=== PATIENT | female | born 1950 | race African-American/Black ===

== ENCOUNTER 2019-12-18 17:44 | Inpatient (IN) ==
[2019-12-18] MEDS ORDERED: ONDANSETRON 4 MG/2 ML VIAL IV STA (18:28)
[2019-12-18] MEDS ORDERED: LABETALOL 20 MG/4 ML SYRINGE IV STA (18:28)
[2019-12-18] MEDS ORDERED: ASPIRIN 325 MG TABLET PO STA (18:28)
[2019-12-18 18:41] LABS: Basophils # 0.1 10*3/uL (0.0-0.2); Basophils % 0.9 % (0.0-0.8); Eosinophils # 0.3 10*3/uL (0.0-0.87); Eosinophils % 4.8 % (0.00-10.9); Hematocrit 39.7 VOL% (35.7-47.0); Hemoglobin 12.6 GM/DL (12.0-16.0); Immature Granulocytes % 0.3 %; Immature Granulocytes Absolute 0.02 #; Lymphocytes # 2.1 10*3/uL (1.4-4.0); Lymphocytes % 29.8 % (21.3-54.2); Mean Corpuscular HGB Conc 31.7 GM/DL (32-36); Mean Corpuscular Volume 82.5 FL (87-102); Mean Platelet Volume 10.6 FL (9.6-12.0); Monocytes % 10.3 % (1.7-12.7); Neutrophils % 53.9 % (38.7-73.9); Platelet Count 257 T/CUMM (130-400); Red Blood Count 4.81 MC/CUMM (3.8-5.5); Red Cell Distribution Width 13.4 % (9.3-17.3); White Blood Count 6.9 T/CUMM (4-12)
[2019-12-18 18:51] LABS: PT Patient Result 10.4 SECS (9.8-11.9); Partial Thromboplastin Time 28.4 SECS (23.9-33.8)
[2019-12-18 19:03] LABS: Alanine Aminotransferase 28 U/L (13-56); Albumin 3.4 G/DL (3.4-5.0); Alkaline Phosphatase 140 U/L (45-117); Aspartate Amino Transferase 11 U/L (0-37); Blood Urea Nitrogen 20 MG/DL (7-18); Calcium 9.2 MG/DL (8.5-10.1); Estimated Glom Filtration Rate 35 ML/MIN; Glucose 362 MG/DL (74-106); Osmolality,Calculated 290.8 MOS/KG (273-304); Total Protein 6.7 G/DL (6.4-8.3)
[2019-12-18] MEDS ORDERED: INSULIN REGULAR 100 UNIT/ML SUBCUT STA (19:09)
[2019-12-18 19:41] LABS: Apearance,Urine CLEAR (Clear); Bacteria,Urine Occasional /HPF (Few); Bilirubin,Urine Negative (Negative); Blood, Urine Negative (Negative); Glucose,Urine (UA) >=500 mg/dL (Negative); Ketones,Urine Negative (Negative); Mucus,Urine Occasional /LPF (Occasional); Nitrite,Urine Negative (Negative); Protein,Urine Negative; RBC,Urine 1 /HPF (0-4); Squamous Epithelial Cell,Urine Occasional /HPF (0-10); Urine Color Yellow (Yellow); Urine Specific Gravity 1.021 (1.001-1.035); WBC,Urine 2 /HPF (0-6)
[2019-12-18 20:02] LABS: Barbiturates Screen,Urine Negative (Negative); Benzodiazepines Screen,Urine Negative (Negative); Cannabinoid Screen,Urine Negative (Negative); Opiate Screen,Urine Negative (Negative); Phencyclidine Screen,Urine Negative (Negative)
[2019-12-18] MEDS ORDERED: GLUCAGON 1 MG VIAL IM PRN (20:09)
[2019-12-18] MEDS ORDERED: ACETAMINOPHEN 325 MG TABLET PO PRN (20:09)
[2019-12-18] MEDS ORDERED: DEXTROSE 10% 250 ML BAG IV PRN (20:09)
[2019-12-18] MEDS ORDERED: ONDANSETRON 4 MG/2 ML VIAL IV PRN (20:09)
[2019-12-18] MEDS ORDERED: MORPHINE 4 MG/1 ML VIAL IV PRN (20:09)
[2019-12-18] MEDS: SODIUM CHLORIDE 0.9% 1,000 ML IV SCH (20:30)
[2019-12-19 05:37] LABS: Basophils # 0.1 10*3/uL (0.0-0.2); Basophils % 1.1 % (0.0-0.8); Eosinophils # 0.2 10*3/uL (0.0-0.87); Eosinophils % 4.1 % (0.00-10.9); Hematocrit 38.7 VOL% (35.7-47.0); Hemoglobin 11.9 GM/DL (12.0-16.0); Immature Granulocytes % 0.4 %; Immature Granulocytes Absolute 0.02 #; Lymphocytes # 2.2 10*3/uL (1.4-4.0); Lymphocytes % 38.3 % (21.3-54.2); Mean Corpuscular HGB Conc 30.7 GM/DL (32-36); Mean Corpuscular Volume 84.5 FL (87-102); Mean Platelet Volume 11.1 FL (9.6-12.0); Monocytes % 8.7 % (1.7-12.7); Neutrophils % 47.4 % (38.7-73.9); Red Blood Count 4.58 MC/CUMM (3.8-5.5); Red Cell Distribution Width 13.4 % (9.3-17.3); White Blood Count 5.6 T/CUMM (4-12)
[2019-12-19 05:40] LABS: Platelet Count 91 T/CUMM (130-400)
[2019-12-19 05:51] LABS: Albumin 3.1 G/DL (3.4-5.0); Bilirubin,Total 0.5 MG/DL (0.2-1.0); Calcium 9.1 MG/DL (8.5-10.1); Osmolality,Calculated 284.5 MOS/KG (273-304); Risk Ratio 2.42; Total Protein 6.3 G/DL (6.4-8.3)
[2019-12-19 05:57] LABS: Hypochromasia 1+
[2019-12-19 05:58] LABS: Microcytosis 1+
[2019-12-19] MEDS ORDERED: ENOXAPARIN 40 MG/0.4 ML SYRINGE ONE (06:57)
[2019-12-19] MEDS: ENOXAPARIN 40 MG/0.4 ML SYRINGE SUBCUT SCH ×2 (07:10→20:49)
[2019-12-19] MEDS: INSULIN REGULAR 100 UNIT/ML SUBCUT SCH ×4 (07:17→17:29)
[2019-12-19] MEDS: DOCUSATE SODIUM 100 MG CAPSULE PO SCH ×3 (09:11→20:49)
[2019-12-19] MEDS: PANTOPRAZOLE 40 MG TABLET PO SCH (09:11)
[2019-12-19] MEDS: SODIUM CHLORIDE 0.9% 1,000 ML IV SCH ×2 (09:33→20:49)
[2019-12-19] MEDS: ASPIRIN EC 81 MG TABLET PO SCH (14:24)
[2019-12-19] MEDS: METOPROLOL TARTRATE 50 MG TABLET PO SCH (17:30)
[2019-12-20] MEDS: INSULIN REGULAR 100 UNIT/ML SUBCUT SCH ×4 (01:00→18:35)
[2019-12-20 05:04] LABS: Calcium 8.7 MG/DL (8.5-10.1); Osmolality,Calculated 286.4 MOS/KG (273-304)
[2019-12-20] MEDS: ROSUVASTATIN 10 MG TABLET PO SCH (09:06)
[2019-12-20] MEDS: sitaGLIPtin 25 MG TABLET PO SCH (09:06)
[2019-12-20] MEDS: MEMANTINE 10 MG TABLET PO SCH (09:07)
[2019-12-20] MEDS: DOCUSATE SODIUM 100 MG CAPSULE PO SCH ×2 (09:07→21:18)
[2019-12-20] MEDS: ASPIRIN EC 81 MG TABLET PO SCH (09:08)
[2019-12-20] MEDS: PANTOPRAZOLE 40 MG TABLET PO SCH (09:08)
[2019-12-20] MEDS: INSULIN GLARGINE 100 UNIT/ML SUBCUT SCH (09:08)
[2019-12-20] MEDS: METOPROLOL TARTRATE 50 MG TABLET PO SCH ×2 (09:08→16:55)
[2019-12-20] MEDS: LORATADINE 10 MG TABLET PO SCH (09:08)
[2019-12-20] MEDS: SODIUM CHLORIDE 0.9% 1,000 ML IV SCH ×2 (09:10→13:35)
[2019-12-20] MEDS: ENOXAPARIN 40 MG/0.4 ML SYRINGE SUBCUT SCH (21:18)
[2019-12-21] MEDS: INSULIN REGULAR 100 UNIT/ML SUBCUT SCH ×4 (01:00→18:16)
[2019-12-21 07:10] LABS: Calcium 8.5 MG/DL (8.5-10.1); Osmolality,Calculated 284.3 MOS/KG (273-304)
[2019-12-21] MEDS: SODIUM CHLORIDE 0.9% 1,000 ML IV SCH ×2 (07:32→12:44)
[2019-12-21] MEDS: LORATADINE 10 MG TABLET PO SCH (09:45)
[2019-12-21] MEDS: ROSUVASTATIN 10 MG TABLET PO SCH (09:45)
[2019-12-21] MEDS: sitaGLIPtin 25 MG TABLET PO SCH (09:45)
[2019-12-21] MEDS: CLOPIDOGREL 75 MG TABLET PO SCH (09:45)
[2019-12-21] MEDS: INSULIN GLARGINE 100 UNIT/ML SUBCUT SCH (09:46)
[2019-12-21] MEDS: DOCUSATE SODIUM 100 MG CAPSULE PO SCH ×2 (09:46→20:34)
[2019-12-21] MEDS: MEMANTINE 10 MG TABLET PO SCH (09:46)
[2019-12-21] MEDS: PANTOPRAZOLE 40 MG TABLET PO SCH (09:46)
[2019-12-21] MEDS: ASPIRIN EC 81 MG TABLET PO SCH (09:46)
[2019-12-21] MEDS: METOPROLOL TARTRATE 50 MG TABLET PO SCH ×2 (09:46→16:45)
[2019-12-21] MEDS: ENOXAPARIN 40 MG/0.4 ML SYRINGE SUBCUT SCH (20:34)
[2019-12-22] MEDS: INSULIN REGULAR 100 UNIT/ML SUBCUT SCH ×4 (00:38→17:19)
[2019-12-22] MEDS: CLOPIDOGREL 75 MG TABLET PO SCH (09:02)
[2019-12-22] MEDS: DOCUSATE SODIUM 100 MG CAPSULE PO SCH ×2 (09:02→21:32)
[2019-12-22] MEDS: METOPROLOL TARTRATE 50 MG TABLET PO SCH ×2 (09:02→17:18)
[2019-12-22] MEDS: sitaGLIPtin 25 MG TABLET PO SCH (09:02)
[2019-12-22] MEDS: ROSUVASTATIN 10 MG TABLET PO SCH (09:02)
[2019-12-22] MEDS: ASPIRIN EC 81 MG TABLET PO SCH (09:02)
[2019-12-22] MEDS: PANTOPRAZOLE 40 MG TABLET PO SCH (09:02)
[2019-12-22] MEDS: INSULIN GLARGINE 100 UNIT/ML SUBCUT SCH (09:02)
[2019-12-22] MEDS: LORATADINE 10 MG TABLET PO SCH (09:02)
[2019-12-22] MEDS: MEMANTINE 10 MG TABLET PO SCH (09:02)
[2019-12-22] MEDS: ENOXAPARIN 40 MG/0.4 ML SYRINGE SUBCUT SCH (21:33)
[2019-12-23] MEDS: INSULIN REGULAR 100 UNIT/ML SUBCUT SCH ×2 (01:01→06:33)
[2019-12-23 08:02] VITALS: BP 141/82
[2019-12-23] MEDS: METOPROLOL TARTRATE 50 MG TABLET PO SCH (08:56)
[2019-12-23] MEDS: ASPIRIN EC 81 MG TABLET PO SCH (08:56)
[2019-12-23] MEDS: sitaGLIPtin 25 MG TABLET PO SCH (09:01)
[2019-12-23] MEDS: INSULIN GLARGINE 100 UNIT/ML SUBCUT SCH (09:01)
[2019-12-23] MEDS: PANTOPRAZOLE 40 MG TABLET PO SCH (09:01)
[2019-12-23] MEDS: DOCUSATE SODIUM 100 MG CAPSULE PO SCH (09:01)
[2019-12-23] MEDS: CLOPIDOGREL 75 MG TABLET PO SCH (09:02)
[2019-12-23] MEDS: LORATADINE 10 MG TABLET PO SCH (09:02)
[2019-12-23] MEDS: ROSUVASTATIN 10 MG TABLET PO SCH (09:02)
[2019-12-23] MEDS: MEMANTINE 10 MG TABLET PO SCH (09:02)
== END 2019-12-23 11:47 | disposition home or self-care (01) | DRG 57 ==
LOC: N.ED 17:44 → N.EDINP 19:15 → N.TELES 12-19 11:31
PROVIDERS: ADMIT Internal Medicine; ATTEND Internal Medicine